=== PATIENT | female | born 1975 | race Caucasian/White ===

== ENCOUNTER 2020-04-27 04:23 | Emergency (ER) | payer MEDICARE, SELFPAY ==
[2020-04-27 04:25] VITALS: BP 159/95; PULSE 136; RESP 18; TEMP 37.3; O2SAT 94; BMI 32.4
--- NOTE | 2020-04-27 04:27 | ED.VISSUMM ---
- ER Visit Summary Date of Service: 04/27/20 Chief Complaint: Tooth pain History of Present Illness: The patient is a 45 F who presents with tooth pain. The pain started yesterday. She has a known broken crown the right upper side. Pain got worse last night. Touching this area makes it worse. She denies fevers, jaw swelling or facial swelling. She took nothing for the pain at home. She does not have a dentist that she sees currently. She called EMS for transportation here this morning. Physical Examination: Vital signs are reviewed. HEENT exam reveals widespread dental decay. She has tenderness at tooth #2. At tooth #2 there is a broken crown. There is no gingival abscess. She does not have any facial tenderness. She has no facial swelling. Her neck is supple without any lymphadenopathy. She is slightly tachycardic which she attributes to anxiety and pain. Test Results: None performed Emergency Department Course and Treatment: Patient has multiple allergies including penicillins, sulfa and Levaquin. I will treat the patient with clindamycin and naproxen. She will get the same medications for home. I will give her a list of dental clinics that she can follow-up with. Treatment Plan: [] Disposition: Discharge Impression: Odontalgia This note was generated with [employer] dictation software. It may contain incorrect words, spelling, and punctuation that were not noted in review of the chart prior to signing ED Disposition - Plan for ED Patient: Disposition: Home or Assisted Living Instructions: ED Tooth Pain Prescriptions: Clindamycin [Cleocin] 300 mg PO TID #60 cap Prescription Printed Naproxen [Naprosyn] 500 mg PO BID PRN #20 tab Prescription Printed Referrals: NOT,DEFINED [Primary Care Provider] -
[2020-04-27] MEDS: Clindamycin HCl 150 MG Capsule 300 MG PO (04:30)
[2020-04-27] MEDS: Naproxen 500 MG Tablet PO (04:31)
[2020-04-27 04:39] VITALS: BP 159/95; PULSE 136; RESP 18; O2SAT 94
== END 2020-04-27 04:39 | disposition home or self-care (01) ==
PROVIDERS: Emergency Provider Emergency Medicine; PCP Nurse Practitioner
DX: K08.89 Other specified disorders of teeth and supporting structures (principal); Z88.0 Allergy status to penicillin; J45.909 Unspecified asthma, uncomplicated; Z72.0 Tobacco use
CPT/HCPCS: 99285

== ENCOUNTER 2020-11-16 05:26 | Emergency (ER) | payer MEDICARE, MEDICAID, SELFPAY ==
[2020-11-16 05:27] VITALS: BP 161/96; PULSE 129; PULSE 131; RESP 20; TEMP 36.3; O2SAT 96; BMI 28.3
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
[2020-11-16 06:10] LABS: Absolute Lymphocyte Count 2.46 X10^3/uL (0.83-4.51); Absolute Neutrophil Count 5.8 X10^3/uL (2.0-7.7); Basophil# 0.05 X10^3/uL; Basophil% 0.6 % (0-1); Eosinophil# 0.14 X10^3/uL; Eosinophils% 1.5 % (0-5); Hematocrit 44.9 % (37-47); Hemoglobin 15.1 g/dL (12.0-15.0); Lymphocyte # 2.46 X10^3/ul (4.0); Lymphocyte % 27.1 % (19-41); Mean Corp Hgb Conc 33.6 g/dL (32-36); Mean Corpuscular Hgb 31.6 pg (27.0-32.0); Mean Corpuscular Volume 93.9 fL (81-99); Mean Platelet Vol. 9.4 fl (6.2-12.0); Monocyte# 0.64 X10^3/uL; NRBC Flagged by Analyzer 0 % (0-5); Neutrophil # 5.76 X10^3/uL (2.7-7.7); Neutrophil % 63.4 % (47-70); Platelet Count 281 K/mm3 (150-450); RBC Distribution Width CV 12.6 % (11.6-14.6); RBC Distribution Width SD 43.7 fl (35.1-43.9); Red Blood Count 4.78 M/mm3 (4.2-5.4); White Blood Count 9.1 K/mm3 (4.4-11.0)
[2020-11-16 06:19] LABS: Amphetamine Urine VISTA NEGATIVE (<1000 ng/mL); Barbiturate Urine VISTA NEGATIVE (< 200 ng/mL); Benzodiazepine Urine VISTA NEGATIVE (< 200 ng/mL); Cocaine Urine VISTA NEGATIVE (< 300 ng/mL); Ecstacy Urine VISTA NEGATIVE (< 500 ng/mL); Methadone Urine VISTA NEGATIVE (< 300 ng/mL); PCP Urine VISTA NEGATIVE (< 25 ng/mL); THC Urine VISTA POSITIVE (< 50 ng/mL); Vista UDS pH Range 5
[2020-11-16 06:24] LABS: AST(SGOT) 61 U/L (15-37); Alanine Aminotransfer ALT/SGPT 111 U/L (13-56); Alkaline Phosphatase 85 U/L (45-117); Anion Gap 9 (5-15); BUN 7 mg/dL (7-18); BUN/Creat Ratio 8.2 RATIO (10-20); Calcium,Total 8.9 mg/dL (8.5-10.1); Chloride 106 mmol/L (98-107); Creatinine, Serum 0.85 mg/dL (0.55-1.02); EST Glomerular Filtration Rate 77 mL/min (>60); Est Glom Filt Rate - Afr Amer 93 mL/min (>60); Estimated Creatinine Clearance 63.07 ml/min; Glucose 117 mg/dL (74-106); Potassium 3.5 mmol/L (3.5-5.1); Sodium Level 139 mmol/L (136-145)
[2020-11-16 06:37] LABS: Internal QC Validated? YES +Cl - CLEAR BKGD; Pregnancy, Serum, hCG Quali. NEGATIVE Negative
[2020-11-16] MEDS: LORazepam 0.5 MG Tablet PO (08:18)
[2020-11-16 08:19] VITALS: BP 155/89; PULSE 107; RESP 16; O2SAT 97
[2020-11-16 09:59] VITALS: BP 147/90; PULSE 101; RESP 16; O2SAT 95
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
--- NOTE | 2020-11-16 10:51 | NURSING ---
ok by Dr. Vo for pt to take her own prescriptions that she brought with her, lamotrigine 100mg daily and risperidone 1mg daily. one of each medication given by this RN per orders on prescription bottle.
--- NOTE | 2020-11-16 11:52 | ED.VISSUMM ---
- ER Visit Summary Date of Service: 11/16/20 Chief Complaint: [] History of Present Illness: The patient is a 45 F [] Physical Examination: [] Test Results: [] Emergency Department Course and Treatment: [] Treatment Plan: [] Disposition: Patient signed out to me pending final disposition after case management evaluation. Patient is having increased paranoia with a history of schizophrenia bipolar. She is compliant with her medications. She is on Lamictal and risperidone. She not had any recent medication changes. She does have a psychiatrist but cannot recall the name. Patient is involved with crisis/the counseling center as well. She is working with renal social worker to help her move because it seems like the trigger for her paranoia is her living situation. Patient does not have any homicidal or suicidal ideations. While she does not feel safe at her home because she feels that someone breaks and when she is not there and she also thinks that her upstairs neighbors are making meth, I do not think she requires a pink slip/emergent psychiatric evaluation. Patient does not want to be admitted at this time. I do not think she is showing that she is unable to care for herself or risk to others and I cannot keep her against her will. Patient is encouraged to follow-up with her primary care doctor as well as her psychiatrist. 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 She is requesting a refill for her albuterol inhaler which will be's prescribed. She was given 1 dose of 0.5 oral Ativan in the ER which did help her symptoms. She is a regular drinker so she will not be prescribed this. Impression: 1. Paranoia 2. History of asthma This note was generated with [employer] dictation software. It may contain incorrect words, spelling, and punctuation that were not noted in review of the chart prior to signing ED Disposition - Plan for ED Patient: Disposition: Home or Assisted Living Diagnosis: Paranoia Instructions: ED Schizophrenia, Paranoid Type Prescriptions: Albuterol Inhaler [Ventolin Hfa] 1 - 2 puff INHALATION Q4H PRN PRN #1 inhaler PRN Reason: Wheezing Transmission Status: Pending to [facility] Referrals: Harmony Diamond ASSOCIATE FINANCIAL ANALYST, ASSOCIATE FINANCIAL ANALYST-C [Primary Care Provider] - [facility] [GROUP OF PHYSICIANS] -
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
[2020-11-20 16:49] LABS: Lamotrigine (Lamictal) Level 2.1 ug/mL (2.0-20.0)
== END 2020-11-16 14:18 | disposition home or self-care (01) ==
PROVIDERS: Emergency Provider Emergency Medicine; PCP Nurse Practitioner
DX: F22 Delusional disorders (principal); F10.20 Alcohol dependence, uncomplicated; Y90.6 Blood alcohol level of 120-199 mg/100 ml; F17.200 Nicotine dependence, unspecified, uncomplicated; F20.9 Schizophrenia, unspecified; F31.9 Bipolar disorder, unspecified; Z88.0 Allergy status to penicillin; Z88.1 Allergy status to other antibiotic agents; Z88.2 Allergy status to sulfonamides; Z88.5 Allergy status to narcotic agent; Z91.040 Latex allergy status
CPT/HCPCS: 80053; 80307; 82077; 82542; 84703; 85025; 87426; 99281; 99283

== ENCOUNTER 2020-11-17 11:07 | Emergency (ER) | payer MEDICARE, MEDICAID, SELFPAY ==
[2020-11-16 05:27] VITALS: BMI 28.3
[2020-11-17 11:08] VITALS: BP 158/84; PULSE 131; RESP 18; TEMP 36.2; O2SAT 96; BMI 29.2
[2020-11-17] MEDS: LORazepam 2 MG/ML Syringe IM (11:49)
[2020-11-17 11:50] LABS: Amphetamine Urine VISTA NEGATIVE (<1000 ng/mL); Barbiturate Urine VISTA NEGATIVE (< 200 ng/mL); Benzodiazepine Urine VISTA NEGATIVE (< 200 ng/mL); Cocaine Urine VISTA NEGATIVE (< 300 ng/mL); Ecstacy Urine VISTA NEGATIVE (< 500 ng/mL); Methadone Urine VISTA NEGATIVE (< 300 ng/mL); PCP Urine VISTA NEGATIVE (< 25 ng/mL); THC Urine VISTA POSITIVE (< 50 ng/mL); Vista UDS pH Range 5
--- NOTE | 2020-11-17 11:52 | CM.ED ---
SOCIAL WORK Received call prior to patient's arrival from [place] with Crisis. Per [place], assessment was completed today and plan for hospitalization as patient is decompensating. Patient internally stimulated, paranoid, delusions. [place] [facility] has been completed. Staff updated. Referral pending at [facility]. Yuly Black, DIRECTOR AERONAUTICS COMMISSION, MILK INSPECTOR
[2020-11-17 12:35] VITALS: RESP 16
[2020-11-17 13:02] LABS: Alcohol, Blood (Medical)-Serum < 3.0 mg/dL
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
--- NOTE | 2020-11-17 13:51 | CM.ED ---
SOCIAL WORK Requested information faxed to [facility]. Yuly Black, PAID SEARCH MARKETING ANALYST, STATION USHER
--- NOTE | 2020-11-17 14:38 | CM.ED ---
SOCIAL WORK Patient gave permission for this worker to call and update daughter, Amarilis. Call to Amarilis and updated on plan for inpatient psych hospitalization. Informed patient is worried about her dog. [place] states will come to ER to obtain patient's apartment keys and will find someone to care for dog. Plan: [facility] Yuly Black, MODELING AND SIMULATION ANALYST, ENROLLMENT MANAGER
--- NOTE | 2020-11-17 15:00 | CM.ED ---
SOCIAL WORK Patient accepted to [facility] by Dr. Nava to the [facility]. Nurse to call report to [phone]. [place] to set up transport. Patient updated.
--- NOTE | 2020-11-17 15:06 | NURSING ---
CALLED [facility]. ETA IS 60 MIN
[2020-11-17 15:32] VITALS: BP 150/89; PULSE 100; RESP 18; TEMP 36.4; O2SAT 96
--- NOTE | 2020-11-17 15:34 | ED.RN ---
attempted to call report to [facility] at this time. phone rang multiple times with no one picking up.
[2020-11-17] MEDS: Nicotine Polacrilex 2 MG GUM PO (15:35)
[2020-11-17 16:08] VITALS: BP 150/89; PULSE 100; RESP 18; TEMP 36.4; O2SAT 96
--- NOTE | 2020-11-17 16:10 | ED.RN ---
ATTEMPTED TO CALL REPORT AGAIN TO [facility], PHONE WAS ANSWERED AND I WAS TOLD I NEEDED TRANSFERRED TO A DIFFERENT SECTION. AFTER TRANSFER PHONE RANG MULTIPLE TIMES AND PHONE WAS HUNG UP.
--- NOTE | 2020-11-17 17:09 | ED.RN ---
attempted to call report, phone rang for 3 minutes, no one picked up. unable to call report at this time.
--- NOTE | 2020-11-17 17:54 | ED.RN ---
TELEPHONE REPORT GIVEN TO VIKRAM AT [facility] INTAKE
== END 2020-11-17 16:08 ==
PROVIDERS: Emergency Provider Emergency Medicine; PCP Nurse Practitioner
DX: F20.9 Schizophrenia, unspecified (principal); M54.9 Dorsalgia, unspecified; J34.89 Other specified disorders of nose and nasal sinuses; J45.909 Unspecified asthma, uncomplicated; F17.210 Nicotine dependence, cigarettes, uncomplicated; Z90.49 Acquired absence of other specified parts of digestive tract; Z79.899 Other long term (current) drug therapy
CPT/HCPCS: 80307; 82077; 96372; 99285

== ENCOUNTER 2021-07-11 10:42 | Emergency (ER) | payer MEDICARE, MEDICAID, SELFPAY ==
[2021-07-11] VITALS (12 sets, daily range): BP systolic 114–141; BP diastolic 81–92; PULSE 78–120; RESP 16–18; TEMP 36.4–36.6; O2SAT 16–98; BMI 29.2
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
--- NOTE | 2021-07-11 11:32 | NURSING ---
called social media marketing manager. left message
[2021-07-11] MEDS: LORazepam 1 MG Tablet PO (15:00)
--- NOTE | 2021-07-11 15:15 | ED.RN ---
THIS NURSE SPOKE WITH [facility]I AT [facility], THERE IS NO EVICTION NOTICE SERVED. PER [facility], OK TO D/C PATIENT. NO NEED FOR SAFETY PLAN
--- NOTE | 2021-07-11 15:52 | ED.RN ---
THIS NURSE IN TO SPEAK WITH THE PT BECAUSE SHE CALLED HER FINANCIAL ADVISOR TRAINEE AT [facility]. PER THE [facility], PT ON THE PHONE CRYING WITH HER FINANCIAL ADVISOR TRAINEE. THIS NURSE SPOKE WITH DR CASIANO ABOUT THE SAME HE JUST CAME OUT OF THE ROOM. DR CASIANO NOT AWARE OF THE PT CRYING. THIS NURSE IN TO SPEAK WITH THE PT, PT ON THE PHONE WITH HER FINANCIAL ADVISOR TRAINEE ON SPEAKER PHONE. THIS NURSE COULD HEAR THE FINANCIAL ADVISOR TRAINEE TALKING ABOUT HOW THEY ARE NOT ABLE TO HELP FIX THE SCREEN DOOR AND THEY ARE NOT SAYING IT IS GOING TO BE SAFE NOW IF SHE GOES HOME. THIS NURSE IN TO SPEAK WITH THE PT. PT CONCERNED THAT THE FRIEND'S DAUGHTER THAT SHE LET STAY WITH HER WAS TRYING TO BREAK INTO HER HOUSE LAST NIGHT AND CUT THE SCREEN DOOR. THE PT STATES I PUT METAL WASHERS INSIDE THE SCREEN DOOR SO IF SOMEONE OPENS IT, I HEAR THE METAL WASHERS FALL. IF THE SCREEN IS CUT I'M NOT SAFE AND I CAN'T LOCK THE DOOR. PT DENIES BEING SUICIDAL OR HOMICIDAL. THIS NURSE SPOKE WITH SECURITY ABOUT CONTACTING THE HRO. THIS NURSE WILL TALK WITH THE HRO AND DETERMINE MORE FROM THE CONVERSATION WITH THE POLICE AND PATIENT. DR CASIANO UP TO DATE ON WHAT WE ARE CURRENTLY DOING.
[2021-07-11 17:41] LABS: Absolute Lymphocyte Count 2.41 X10^3/uL (0.83-4.51); Absolute Neutrophil Count 9.2 X10^3/uL (2.0-7.7); Basophil# 0.04 X10^3/uL; Basophil% 0.3 % (0-1); Eosinophil# 0.15 X10^3/uL; Eosinophils% 1.2 % (0-5); Hematocrit 48.7 % (37-47); Hemoglobin 15.3 g/dL (12.0-15.0); Lymphocyte # 2.41 X10^3/ul (0.83-4.51); Lymphocyte % 19.3 % (19-41); Mean Corp Hgb Conc 31.4 g/dL (32-36); Mean Corpuscular Hgb 28.7 pg (27.0-32.0); Mean Corpuscular Volume 91.2 fL (81-99); Mean Platelet Vol. 9.5 fl (6.2-12.0); Monocyte# 0.57 X10^3/uL; Monocyte% 4.6 % (0-10); NRBC Flagged by Analyzer 0 % (0-5); Neutrophil # 9.22 X10^3/uL (2.7-7.7); Neutrophil % 73.9 % (47-70); Platelet Count 346 K/mm3 (150-450); RBC Distribution Width CV 13.4 % (11.6-14.6); Red Blood Count 5.34 M/mm3 (4.2-5.4); White Blood Count 12.5 K/mm3 (4.4-11.0)
[2021-07-11 18:02] LABS: Anion Gap 8 (5-15); BUN 3 mg/dL (7-18); Calcium,Total 9.9 mg/dL (8.5-10.1); Chloride 103 mmol/L (98-107); Creatinine, Serum 0.75 mg/dL (0.55-1.02); EST Glomerular Filtration Rate 88 mL/min (>60); Est Glom Filt Rate - Afr Amer 106 mL/min (>60); Estimated Creatinine Clearance 70.73 ml/min; Glucose 105 mg/dL (74-106); Potassium 3.7 mmol/L (3.5-5.1); Sodium Level 139 mmol/L (136-145)
[2021-07-11 18:07] LABS: Internal QC Validated? YES +Cl - CLEAR BKGD; Pregnancy, Serum, hCG Quali. NEGATIVE Negative
[2021-07-11 18:11] LABS: Alcohol, Blood (Medical)-Serum < 3.0 mg/dL
[2021-07-11 18:15] LABS: Amphetamine Urine VISTA NEGATIVE (<1000 ng/mL); Barbiturate Urine VISTA NEGATIVE (< 200 ng/mL); Benzodiazepine Urine VISTA NEGATIVE (< 200 ng/mL); Cocaine Urine VISTA NEGATIVE (< 300 ng/mL); Ecstacy Urine VISTA NEGATIVE (< 500 ng/mL); Methadone Urine VISTA NEGATIVE (< 300 ng/mL); PCP Urine VISTA NEGATIVE (< 25 ng/mL); THC Urine VISTA POSITIVE (< 50 ng/mL); Vista UDS pH Range 5
[2021-07-11] MEDS: hydrOXYzine PAM 25 MG Capsule PO (22:19)
[2021-07-11] MEDS: Lithium Carbonate 300mg Capsule 300 MG PO (22:19)
--- NOTE | 2021-07-11 22:41 | NURSING ---
ACCEPTED TO [facility] BY KENDRA DASH [phone] REPORT ITU UNIT
[2021-07-11] MEDS: RisperiDONE 1 MG Tablet 2 MG PO (22:49)
== END 2021-07-11 23:21 | disposition home or self-care (01) ==
PROVIDERS: Student in an Organized Health Care Education/Training Program; Emergency Provider Emergency Medicine; PCP Nurse Practitioner
DX: F41.9 Anxiety disorder, unspecified (principal); F20.9 Schizophrenia, unspecified; F31.9 Bipolar disorder, unspecified; F42.9 Obsessive-compulsive disorder, unspecified; W22.09XA Striking against other stationary object, initial encounter; F17.210 Nicotine dependence, cigarettes, uncomplicated; Z79.82 Long term (current) use of aspirin; Z79.899 Other long term (current) drug therapy
CPT/HCPCS: 80048; 80307; 82077; 84703; 85025; 87426; 99285

== ENCOUNTER → 2021-09-05 09:10 | Outpatient (CLI) | payer MEDICARE, MEDICAID, SELFPAY ==
[2021-09-05 10:51] LABS: Hemoglobin A1c 5.1 % (3.8-5.6)
[2021-09-05 13:47] LABS: Creatinine, Serum 0.75 mg/dL (0.55-1.02); EST Glomerular Filtration Rate 88 mL/min (>60); Est Glom Filt Rate - Afr Amer 107 mL/min (>60); Prolactin 94.7 ng/mL; Thyroid Stim Hormone (TSH) 3.87 uIU/mL (0.358-3.74)
== END ==
PROVIDERS: PCP Nurse Practitioner; Referring Provider Psychiatry & Neurology Psychiatry; Visit Provider Psychiatry & Neurology Psychiatry
DX: Z79.899 Other long term (current) drug therapy (principal)
CPT/HCPCS: 36415; 80178; 82565; 83036; 84146; 84443

== ENCOUNTER 2021-12-12 09:20 | Outpatient (CLI) | payer MEDICARE, MEDICAID, SELFPAY ==
[2021-12-12 10:57] LABS: Creatinine, Serum 0.83 mg/dL (0.55-1.02); EST Glomerular Filtration Rate 78 mL/min (>60); Est Glom Filt Rate - Afr Amer 94 mL/min (>60)
== END 2021-12-12 23:59 | disposition home or self-care (01) ==
LOC: LAB 09:21
PROVIDERS: PCP Nurse Practitioner; Referring Provider Psychiatry & Neurology Psychiatry; Visit Provider Psychiatry & Neurology Psychiatry
DX: Z79.899 Other long term (current) drug therapy (principal)
CPT/HCPCS: 36415; 80178; 82565; 84443

== ENCOUNTER → 2022-02-14 | Outpatient (CLI) | payer MEDICARE, MEDICAID, SELFPAY ==
[2022-02-14 11:08] LABS: Hemoglobin A1c 5.3 % (3.8-5.6)
[2022-02-14 11:28] LABS: Lithium < 0.20 mmol/L (0.60-1.20)
[2022-02-14 11:31] LABS: Creatinine, Serum 0.83 mg/dL (0.55-1.02); EST Glomerular Filtration Rate 78 mL/min (>60); Est Glom Filt Rate - Afr Amer 95 mL/min (>60); Thyroid Stim Hormone (TSH) 3.54 uIU/mL (0.358-3.74)
== END | disposition home or self-care (01) ==
PROVIDERS: PCP Nurse Practitioner; Visit Provider Psychiatry & Neurology Psychiatry
DX: Z79.899 Other long term (current) drug therapy (principal)
CPT/HCPCS: 36415; 80178; 82565; 83036; 84443

== ENCOUNTER 2022-11-21 11:31 | Emergency (ER) | payer MEDICARE, MEDICAID, SELFPAY ==
[2022-11-21 11:32] VITALS: BP 130/96; PULSE 81; RESP 16; TEMP 36.8; O2SAT 98; BMI 32.7
--- NOTE | 2022-11-21 13:17 | EDS_ITS ---
HPI History of Present Illness Chief Complaint: Dental Narrative Narrative: 47-year-old female presenting with left upper maxillary tooth pain. She is having swelling in the face since yesterday. Patient states he was seen by a dentist in [place] and they did want to take out her teeth. She felt as if the office was too far and did not want to drive back therapists in [place]. She wants to establish care and [place]. No trouble swallowing or breathing. No fevers or chills. No systemic signs or symptoms. [facility] Medical History History of tibial fracture OCD (obsessive compulsive disorder) Home Medications aspirin 81 mg tablet,delayed release 81 mg PO DAILY 04/27/20 [History Last Taken Unknown] risperidone 1 mg tablet 2 mg PO DAILY 04/27/20 [History Last Taken Unknown] albuterol sulfate 90 mcg/actuation aerosol inhaler 1 - 2 puff inhalation Q4H PRN PRN Wheezing ##1 11/16/20 [Rx Last Taken Unknown] hydroxyzine pamoate 25 mg capsule (Vistaril) 25 mg PO TID anxiety #14 caps 07/11/21 [Rx Last Taken Unknown] lithium carbonate 300 mg capsule 300 mg PO BID 07/11/21 [History Last Taken Unkn own] clindamycin HCl 150 mg capsule 450 mg PO TID 10 days #90 caps 11/21/22 [Rx Last Taken Unknown] Allergy/AdvReac Type Severity Reaction Status Date / Time acetaminophen [From Vicodin] Allergy Angioedema Verified 11/21/22 11:34 ciprofloxacin [From Cipro] Allergy Angioedema Verified 11/21/22 11:34 hydrocodone [From Vicodin] Allergy Angioedema Verified 11/21/22 11:34 latex Allergy Swelling Verified 11/21/22 11:34 levofloxacin Allergy Hives Verified 11/21/22 11:34 Penicillins Allergy Hives Verified 11/21/22 11:34 Sulfa (Sulfonamide Allergy Hives Verified 11/21/22 11:34 Antibiotics) Surgical History H/O tubal ligation History of History of cholecystectomy History of tonsillectomy and adenoidectomy Social History Smoking Status: Current every day smoker tobacco type: cigarettes ROS ROS ED Constitutional Constitutional ED: Denies chills, fever(s) or sweats Eyes Eyes: Denies blurry vision or change in vision ENT ENT ED: Reports other Details: Left-sided dental pain and facial swelling ; Denies ear pain Cardiovascular Cardiovascular: Denies chest pain, palpitations or racing heartbeat Respiratory/Chest Respiratory/Chest: Denies cough, dyspnea or sputum Gastrointestinal Gastrointestinal: Denies abdominal pain, constipation, diarrhea, nausea or vomiting Genitourinary Genitourinary ED: Denies dysuria, hematuria or urinary frequency Musculoskeletal Musculoskeletal: Denies arthralgias, myalgias or neck pain Integumentary Denies abscess, Abrasions or rash Neurologic Neurologic: Denies headache(s), paresthesias or weakness Psychiatric Psychiatric: Denies anxiety, depression, suicidal ideation or suicidal thoughts Endocrine Endocrinology: Denies polydipsia or polyuria EXAM Physical Exam Const Vital Signs: 11/21/22 11:32 Temperature 98.2 F Temperature Source Temporal Pulse Rate 81 Respiratory Rate 16 Blood Pressure 130/96 H Blood Pressure Mean 107 Pulse Ox 98 Oxygen Delivery Method Room Air Positive well nourished General Appearance ED: NAD HEENT HEENT Narrative: Left-sided facial edema in the maxillary region. No crepitance. No fluctuance. Dentition in the left upper maxillary jawline are in various forms of decay. There is tenderness to all of these teeth. Tongue is not swollen. No sublingual edema Mouth ED: Yes lips normal, Yes tongue normal and Yes salivary gland normal Mouth: lips normal, tongue normal and salivary gland normal Teeth and Gingiva: caries, poor dentition and teeth discoloration Throat: posterior oropharynx normal Eyes PERRL and EOMs intact bilaterally Lymph Lymphatic: no lymphadenopathy noted Chest Wall inspection of chest normal and palpation of chest normal Resp normal respiratory effort and no retractions Cardio regular rate and regular rhythm GI normal to inspection, nondistended, normoactive bowel sounds Extremity normal to inspection Neuro oriented x3 and CN's II-XII intact bilaterally Sensorium / Orientation: alert Psych mental status grossly normal Skin no rashes or lesions noted MDM MDM MDM Narrative Medical decision making narrative: Patient presented with left-sided facial swelling. She has very poor dentition this is likely the source. She has a dentist that she saw in [place] but did not want to go back because is very far and she does not drive. I will give her a dental referral sheet however I recommend if she is already established with a dentist that she should go back there because it would be much faster for her. I do believe she benefit from having his teeth removed sooner and it sounds like that was the plan. Patient started on clindamycin due to penicillin allergy. First dose given in ER. Tylenol and ibuprofen for home. Impression: 1. Dental abscess 2. Dental caries Lab Data Attestation: I reviewed the patient's lab results. Discharge Plan Triage Chief Complaint: Dental ED Provider: Christiano Tafoya Dx/Rx/DC Orders Instructions: Dental Abscess Prescriptions: New clindamycin HCl 150 mg capsule 450 mg PO TID 10 Days Qty: 90 0RF No Action aspirin 81 MG tablet,delayed release (DR/EC) 81 mg PO DAILY risperidone 1 MG tablet 2 mg PO DAILY albuterol sulfate 1 INHALER inhaler 1 - 2 puff INHALATION Q4H PRN PRN (Reason: Wheezing) Qty: 1 0RF lithium carbonate 300 mg capsule 300 mg PO BID Label Comments: Take 1 Tablet By Oral Route 2 times per day hydroxyzine pamoate [Vistaril] 25 mg capsule 25 mg PO TID Qty: 14 0RF Primary Care Provider: Harmony Diamond RUBBER PRINTING MACHINE OPERATOR Referrals: Harmony Diamond NP, RUBBER PRINTING MACHINE OPERATOR-C [Primary Care Provider] - Disposition Disposition: Home, Self Care Discharge Date/Time: 11/21/22 13:30
[2022-11-21] MEDS: Clindamycin HCl 150 MG Capsule 450 MG PO (13:25)
== END 2022-11-21 13:30 | disposition home or self-care (01) ==
PROVIDERS: Emergency Provider Student in an Organized Health Care Education/Training Program; PCP Nurse Practitioner; Visit Provider Student in an Organized Health Care Education/Training Program
DX: K04.7 Periapical abscess without sinus (principal); F17.210 Nicotine dependence, cigarettes, uncomplicated; K02.9 Dental caries, unspecified; F42.9 Obsessive-compulsive disorder, unspecified
CPT/HCPCS: 99283

== ENCOUNTER 2023-06-30 22:14 | Emergency (ER) | payer MEDICARE, MEDICAID, SELFPAY ==
[2023-06-30 22:15] VITALS: BP 159/98; PULSE 107; RESP 18; TEMP 36.4; O2SAT 95; BMI 32.3
--- NOTE | 2023-06-30 23:37 | EDS_ITS ---
HPI History of Present Illness Chief Complaint: Dental Informant: patient and EMS Narrative Narrative: Patient is a 48-year-old female with past medical history of schizophrenia and bipolar disorder. She states that approximately 12 hours ago she had all of her top teeth surgically removed. She had dentures placed at that time and was advised that she needs to keep the dentures in and hold pressure to help control bleeding. She denies any history of bleeding disorder or blood thinner use. Patient states she has been trying to do this but has had increased pain that is not controlled with the ibuprofen that was prescribed. With the persistent bleeding she is concerned and secondary to this comes in for evaluation. [facility] Medical History History of tibial fracture OCD (obsessive compulsive disorder) Home Medications aspirin 81 mg tablet,delayed release 81 mg PO DAILY 04/27/20 [History Last Taken Unknown] risperidone 1 mg tablet 2 mg PO DAILY 04/27/20 [History Last Taken Unknown] albuterol sulfate 90 mcg/actuation aerosol inhaler 1 - 2 puff inhalation Q4H PRN PRN Wheezing ##1 11/16/20 [Rx Last Taken Unknown] hydroxyzine pamoate 25 mg capsule (Vistaril) 25 mg PO TID anxiety #14 caps 07/11/21 [Rx Last Taken Unknown] lithium carbonate 300 mg capsule 300 mg PO BID 07/11/21 [History Last Taken Unknown] clindamycin HCl 150 mg capsule 450 mg (3 x 150 mg) PO TID 10 days #90 caps 11/21/22 [Rx Last Taken Unknown] morphine 15 mg immediate release tablet 15 mg PO BID PRN pain 5 days #10 tabs 06/30/23 [Rx Last Taken Unknown] Allergy/AdvReac Type Severity Reaction Status Date / Time acetaminophen [From Vicodin] Allergy Angioedema Verified 11/21/22 11:34 ciprofloxacin [From Cipro] Allergy Angioedema Verified 11/21/22 11:34 hydrocodone [From Vicodin] Allergy Angioedema Verified 11/21/22 11:34 latex Allergy Swelling Verified 11/21/22 11:34 levofloxacin Allergy Hives Verified 11/21/22 11:34 Penicillins Allergy Hives Verified 11/21/22 11:34 Sulfa (Sulfonamide Allergy Hives Verified 11/21/22 11:34 Antibiotics) Surgical History H/O tubal ligation History of History of cholecystectomy History of tonsillectomy and adenoidectomy Social History Smoking Status: Current every day smoker tobacco type: cigarettes ROS ROS ED Constitutional Constitutional ED: Denies chills or fever(s) ENT ENT ED: Reports other Details: Positive dental pain and dental bleeding ; Denies sore throat Cardiovascular Cardiovascular: Denies chest pain Respiratory/Chest Respiratory/Chest: Denies cough or dyspnea Gastrointestinal Gastrointestinal: Denies abdominal pain, diarrhea, nausea or vomiting Genitourinary Genitourinary ED: Denies dysuria Musculoskeletal Musculoskeletal: Denies myalgias Integumentary Denies rash Neurologic Neurologic: Denies headache(s) Psychiatric Psychiatric: Reports anxiety Hematologic/Lymphatic Hematologic/Lymphatic: Denies easy bleeding or easy bruising EXAM Physical Exam Const Vital Signs: 06/30/23 22:15 06/30/23 23:49 Temperature 97.6 F L Temperature Source Temporal Pulse Rate 107 H Respiratory Rate 18 18 Blood Pressure 159/98 H Blood Pressure Mean 118 Pulse Ox 95 Oxygen Delivery Method Room Air Positive well nourished and well developed General Appearance ED: well developed; Negative for pallor HEENT HEENT Narrative: Patient's upper dentures were removed and there are postsurgical changes of tooth extraction consistent with her history. There is occasional mild venous ooze of blood from the extraction sites without arterial bleeding. No airway edema or compromise and no secondary changes to suggest infection. Eyes PERRL and EOMs intact bilaterally General Eye ED: Negative for scleral icterus Neck supple Resp normal respiratory effort and clear to auscultation bilaterally Cardio regular rate and regular rhythm Extremity normal to inspection Neuro oriented x3 and CN's II-XII intact bilaterally Sensorium / Orientation: alert Psych Psych Narrative: Patient has a nervous/anxious affect Skin no rashes or lesions noted General Skin Exam: Negative for pallor MDM MDM MDM Narrative Medical decision making narrative: Patient presented to the ER hypertensive. She had surgical extraction of all of her top teeth without suture placement. She denied bleeding disorder or blood thinner use. The surgical extraction is only 12 hours old. The exam indicates there is just mild venous bleeding occurring occasionally. Therefore this time without arterial bleed or concern for acute blood loss anemia I do not feel there is need for laboratory studies. Patient was informed she needs to follow the instructions of keeping the dentures in and holding pressure and she was also advised to perform cold water gargles to help with vasoconstriction. As patient states she cannot perform the compression secondary to pain I will prescribe her MS Contin as she has an allergic reaction to [place] which she states is angioedema and she is unsure if it is secondary to the codeine component or the acetaminophen. The patient does state that she has had morphine in the past without any interactions and because of the severe pain from the multiple teeth extraction she will prescribe this but I do not feel there is need for placement of sutures or Surgicel as the bleeding from the postoperative extraction is minimal History & Record Review Discussion w/independent historian: Patient Discharge Plan Triage Chief Complaint: Dental ED Provider: Martinez Thorpe Dx/Rx/DC Orders Clinical Impression: Post-op bleeding, Post-operative pain, Bipolar disorder Instructions: ED Dental Pain, ED Post Op Wound Check, Bleeding Prescriptions: New morphine 15 mg tablet 15 mg PO BID PRN (Reason: pain) 5 Days Qty: 10 0RF No Action aspirin 81 MG tablet,delayed release (DR/EC) 81 mg PO DAILY risperidone 1 MG tablet 2 mg PO DAILY albuterol sulfate 1 INHALER inhaler 1 - 2 puff INHALATION Q4H PRN PRN (Reason: Wheezing) Qty: 1 0RF lithium carbonate 300 mg capsule 300 mg PO BID Patient Comments: Take 1 Tablet By Oral Route 2 times per day hydroxyzine pamoate [Vistaril] 25 mg capsule 25 mg PO TID Qty: 14 0RF clindamycin HCl 150 mg capsule 450 mg PO TID 10 Days Qty: 90 0RF Primary Care Provider: Harmony Diamond TRESTLE MECHANIC Referrals: Harmony Diamond TRESTLE MECHANIC, TRESTLE MECHANIC-C [Primary Care Provider] - Activity Restrictions/Additional Instructions: Please follow-up with your dentist on as previously directed. Swish and gargle cold water to help reduce bleeding and continue to hold pressure on your upper dentures to help reduce bleeding. Return to the ER should you have any further concerns Disposition Disposition: Home, Self Care Discharge Date/Time: 07/01/23 00:12
[2023-06-30 23:49] VITALS: RESP 18
[2023-06-30] MEDS: Ondansetron ODT 4 MG Tablet PO (23:51)
[2023-06-30] MEDS: Morphine 4 MG/ML Syringe 6 MG IM (23:51)
== END 2023-07-01 00:12 | disposition home or self-care (01) ==
PROVIDERS: Emergency Provider Emergency Medicine; PCP Nurse Practitioner; Visit Provider Emergency Medicine
DX: K08.89 Other specified disorders of teeth and supporting structures (principal); F31.9 Bipolar disorder, unspecified; G89.18 Other acute postprocedural pain; F17.210 Nicotine dependence, cigarettes, uncomplicated
CPT/HCPCS: 96372; 99284